=== PATIENT | female | born 1945 | race Caucasian/White ===

== ENCOUNTER → 2025-02-25 | Outpatient (CLI) | payer MEDICARE, OTHER | LOC: LAB SHORT 19:25 → LAB 19:25 | DX: R82.998 Other abnormal findings in urine (principal) | CPT/HCPCS: 87086 ==

== ENCOUNTER → 2025-02-25 | Outpatient (CLI) | payer MEDICARE, OTHER ==
[2025-02-25 16:45] LABS: BASOPHILS ABSOLUTE AUTO 0.05 K/mm3 (0.00-0.23); BASOPHILS PERCENT AUTO 1 % (0-2); EOSINOPHILS ABSOLUTE AUTO 0.13 K/mm3 (0.00-0.68); EOSINOPHILS PERCENT AUTO 3 % (0-6); Hematocrit 34.5 % (33.0-51.0); Hemoglobin 11.6 g/dL (11.5-16.0); IMMATURE GRAN ABSOLUTE AUTO 0.01 K/mm3 (0.00-0.10); IMMATURE GRAN PERCENT AUTO 0 % (0-1); LYMPHOCYTES ABSOLUTE AUTO 2.06 K/mm3 (0.84-5.20); LYMPHOCYTES PERCENT AUTO 49 % (21-46); MONOCYTES ABSOLUTE AUTO 0.31 K/mm3 (0.16-1.47); MONOCYTES PERCENT AUTO 7 % (4-13); Mean Corpuscular HGB Conc 33.6 g/dL (31.5-36.5); Mean Corpuscular Volume 97 fL (80-100); NEUTROPHILS ABSOLUTE AUTO 1.63 K/mm3 (1.96-9.15); NEUTROPHILS PERCENT AUTO 39 % (41-73); NRBC ABSOLUTE 0.00 K/mm3 (0.00-0.02); NRBC Auto 0.0 /100 WBC (0.0-0.2); Platelet Count 240 K/mm3 (150-400); RDW Coefficient Variation 17.2 % (11.7-14.2); RDW Standard Deviation 62.1 fL (35.1-46.3)
[2025-02-25 16:57] LABS: Alanine Aminotransfer (ALT/SGP 73.0 U/L (12-78); Albumin, Blood 3.9 g/dL (3.4-5.0); Albumin/Globulin Ratio 0.9 (0.8-1.8); Anion Gap 10.0 mmol/L (3-11); Aspartate Aminotrans (AST/SGOT 38.0 U/L (12-37); Bilirubin, Total 0.5 mg/dL (0.1-1.0); Blood Urea Nitrogen 39.0 mg/dL (8-24); CO2, Blood 32.0 mmol/L (21-32); Calcium, Blood 10.0 mg/dL (8.5-10.1); Chloride, Blood 104.0 mmol/L (98-108); Creatinine, Blood 2.25 mg/dL (0.40-1.00); Globulin, Blood 4.3 g/dL (2.2-4.0); Glucose, Blood 102.0 mg/dL (70-99); Potassium, Blood 4.2 mmol/L (3.5-5.5); Sodium, Blood 142.0 mmol/L (136-145); Total Protein, Blood 8.2 g/dL (6.4-8.2)
== END | disposition home or self-care (01) ==
LOC: LAB 16:42 → LAB SHORT 16:42
DX: R55 Syncope and collapse (principal)
CPT/HCPCS: 80053; 85025

== ENCOUNTER 2025-04-15 06:50 | Inpatient (IN) | payer MEDICARE ==
[~2025-04-15] VITALS: Ht 165.1 cm; Wt 89.1 kg
[2025-04-15] MEDS ORDERED: NS 500 ML IV SCH (07:40)
[2025-04-15 08:57] LABS: Hematocrit 27.8 % (33.0-51.0); Hemoglobin 9.6 g/dL (11.5-16.0); Mean Corpuscular HGB Conc 34.5 g/dL (31.5-36.5); Mean Corpuscular Volume 104 fL (80-100); NRBC ABSOLUTE 0.00 K/mm3 (0.00-0.02); NRBC Auto 0.0 /100 WBC (0.0-0.2); Platelet Count 205 K/mm3 (150-400); RDW Coefficient Variation 14.9 % (11.7-14.2); RDW Standard Deviation 57.2 fL (35.1-46.3)
[2025-04-15 09:20] LABS: Alanine Aminotransfer (ALT/SGP 67.0 U/L (12-78); Albumin, Blood 3.7 g/dL (3.4-5.0); Albumin/Globulin Ratio 1.0 (0.8-1.8); Anion Gap 10.0 mmol/L (3-11); Aspartate Aminotrans (AST/SGOT 72.0 U/L (12-37); Bilirubin, Total 0.5 mg/dL (0.1-1.0); Blood Urea Nitrogen 63.0 mg/dL (8-24); CO2, Blood 26.0 mmol/L (21-32); Calcium, Blood 9.6 mg/dL (8.5-10.1); Chloride, Blood 102.0 mmol/L (98-108); Creatinine, Blood 4.89 mg/dL (0.40-1.00); Globulin, Blood 3.8 g/dL (2.2-4.0); Glucose, Blood 122.0 mg/dL (70-99); Magnesium, Blood 3.0 mg/dL (1.6-2.4); Potassium, Blood 4.2 mmol/L (3.5-5.5); Sodium, Blood 134.0 mmol/L (136-145); Total Protein, Blood 7.5 g/dL (6.4-8.2)
[2025-04-15 09:31] LABS: BAND PERCENT MAN 1 % (0-8); BASOPHILS ABSOLUTE MAN 0.10 K/mm3 (0.00-0.23); BASOPHILS PERCENT MAN 3 % (0-2); EOSINOPHILS ABSOLUTE MAN 0.00 K/mm3 (0.00-0.68); EOSINOPHILS PERCENT MAN 0 % (0-6); LYMPHOCYTES ABSOLUTE MAN 1.50 K/mm3 (0.84-5.20); LYMPHOCYTES PERCENT MAN 45 % (21-46); MONOCYTES ABSOLUTE MAN 0.10 K/mm3 (0.16-1.47); MONOCYTES PERCENT MAN 3 % (4-13); NEUTROPHILS ABSOLUTE MAN 1.64 K/mm3 (1.96-9.15); SEG NEUTROPHILS PERCENT MAN 48 % (41-73)
[2025-04-15] MEDS ORDERED: NS 1,000 ML IV SCH (10:05)
[2025-04-15] MEDS ORDERED: FLU VACC TS2025(65UP)/MF59C/PF 45 MCG/0.5 ML SYRINGE IM SCH (10:10)
[2025-04-15 13:21] LABS: Source, Urine Straight Cath
[2025-04-15 13:34] LABS: Bilirubin, Urine Neg (Neg); Color, Urine Yellow (P-Yellow); Glucose Qualitative, Urine Neg (Neg); Ketones, Urine Neg (Neg); Leukocyte Esterase, Urine Neg (Neg); Protein, Urine Neg (Neg); Specific Gravity, Urine 1.020 (1.003-1.022); Urobilinogen, Urine NORM (Normal)
[2025-04-15 13:50] LABS: U Amphetamine Screen Not Detected; U Barbituate Screen Not Detected; U Benzodiazapine Screen Not Detected; U Buprenorphine Screen Not Detected; U Cannabinoids Screen Not Detected; U Cocaine Screen Not Detected; U Methadone Screen Not Detected; U Methamphetamine Screen Not Detected; U Opiates Screen Not Detected; U Oxycodone Screen DETECTED; U Phencyclidine Screen Not Detected
[2025-04-15] MEDS ORDERED: Lisinopril-Hct1 EAC4 PO (14:27)
[2025-04-15] MEDS ORDERED: METO50ER PO (14:27)
[2025-04-15] MEDS ORDERED: OMEP20ER PO (14:28)
[2025-04-15] MEDS ORDERED: POTA10T PO (14:28)
[2025-04-15] MEDS ORDERED: DULO60 PO (14:28)
[2025-04-15] MEDS ORDERED: ASPI81CH PO (14:28)
[2025-04-15] MEDS ORDERED: TORS10 PO (14:28)
[2025-04-15] MEDS ORDERED: Cyclobenzaprine5 MG PO (14:29)
[2025-04-15] MEDS ORDERED: OXYC5 PO (14:29)
[2025-04-15] MEDS ORDERED: VERZENIO150 MG PO ×2 (14:29→14:30)
[2025-04-15] MEDS ORDERED: ANASTROZOLE1 M7 PO (14:30)
[2025-04-15 14:53] VITALS: BP 121/54
[2025-04-15 17:36] LABS: Influenza A, PCR NEGATIVE (NEGATIVE); Influenza B, PCR NEGATIVE (NEGATIVE); Resp Syncytial Virus, PCR NEGATIVE (NEGATIVE); SARS-Cov-2 (COVID-19) PCR, MMC NEGATIVE (NEGATIVE)
--- NOTE | 2025-04-15 18:32 | NUR ---
SHIFT SUMMARY NEW ER ADMIT THIS SHIFT, A&OX4, PLEASANT AND COOPERATIVE W/CARES, SBA (NO DEVICES) TO BR, CONT X2, USING CALL LIGHT APPROPIATELY, DR ARITA IN TO SEE PT BEFORE DINNER, FAMILY AT BEDSIDE AT THIS TIME, CALL LIGHT IN REACH, WILL CONT TO MONITOR UNTIL REPORT GIVEN TO ONCOMING NURSE.
[2025-04-15] MEDS ORDERED: Heparin Sodium,Porcine 5,000 UNIT/0.5 ML SDV SC SCH (21:00)
[2025-04-15 21:37] VITALS: BP 100/51
[2025-04-15] MEDS ORDERED: Dextran/Hypromellose/Glycerin 15 DROP/ML BTL BOTHEYES PRN (22:25)
[2025-04-15] MEDS ORDERED: Atarax10 MG (22:31)
[2025-04-16 04:22] VITALS: BP 110/49
[2025-04-16 06:02] LABS: Alanine Aminotransfer (ALT/SGP 48.0 U/L (12-78); Albumin, Blood 2.8 g/dL (3.4-5.0); Albumin/Globulin Ratio 0.9 (0.8-1.8); Anion Gap 8.0 mmol/L (3-11); Aspartate Aminotrans (AST/SGOT 31.0 U/L (12-37); Bilirubin, Direct 0.1 mg/dL (0.0-0.3); Bilirubin, Indirect 0.3 mg/dL (0.1-0.7); Bilirubin, Total 0.4 mg/dL (0.1-1.0); Blood Urea Nitrogen 53.0 mg/dL (8-24); CO2, Blood 24.0 mmol/L (21-32); Calcium, Blood 8.6 mg/dL (8.5-10.1); Chloride, Blood 108.0 mmol/L (98-108); Creatinine, Blood 3.12 mg/dL (0.40-1.00); Globulin, Blood 3.2 g/dL (2.2-4.0); Glucose, Blood 138.0 mg/dL (70-99); Phosphorus, Blood 3.5 mg/dL (2.5-4.9); Potassium, Blood 4.3 mmol/L (3.5-5.5); Sodium, Blood 136.0 mmol/L (136-145); Total Protein, Blood 6.0 g/dL (6.4-8.2)
[2025-04-16 07:32] VITALS: BP 114/55
--- NOTE | 2025-04-16 07:42 | NUR ---
END OF SHIFT SUMMARY: PT VISITING FAMILY AT START OF SHIFT. PT DAUGHTER TO BRING IN PT ORAL CHEMO SHE HAS BEEN TAKING PRIOR TO ADMISSION. DISCUSED W FAMILY AND PT THAT SHE IS TO NOT TAKE ANY HOME MEDICATIONS TILL RENAL AND ONCOLOGIST AND PRIMARY HERE DETERMINE PLAN OF CARE AND IMPROVEMENT IN KIDNEY FUNCTION. OVERNIGHT, IVF RUNNING AT 100 AND AM RENAL AND LIVER PANEL LABS DRAWN. PT USED WALKER TO WALK TO RR AND HAD BM AND SEVERAL VOIDS OVERNIGHT. IN AM HOURS, PT AWOKE W NONPRODUCTIVE COUGH. PT REPORTS HAVING THIS FOR SOME TIME AND DOES NOT USE O2 AT HOME. ER DID RESPITORY PANEL AND RESULTS WERE NEGATIVE FOR INFECTION AT THIS TIME. MED REC COMPLETED AND AWAITING TEAM TO DETERMINE RESUMPTION OF HOME MEDICATIONS. PT ALERT AND ORIENTED ALL SHIFT W NO JERKING OR COMPLAINTS OF HEADACHE DAUGHTER HAD STATED SEEING BRINGING PT TO HOSPITAL
[2025-04-16] MEDS ORDERED: NS 1,000 ML IV SCH (14:10)
[2025-04-16 15:24] VITALS: BP 155/68
--- NOTE | 2025-04-16 18:10 | NUR ---
SHIFT SUMMARY: A&OX4 THROUGHOUT SHIFT. PLEASANT AND COOPERATIVE WITH CARE. NO ACUTE EVENTS THIS SHIFT. O2 SATS >90% ON ROOM AIR. DENIES FEELING SHORT OF BREATH. DENIES CHEST PAIN AND/OR DISCOMFORT. FLUIDS RUNNING PER EMAR. UP OUT OF BED MULTIPLE TIMES WITH STAFF ASSIST. LYING IN BED AT THIS TIME. BED LOCKED AND IN THE LOWEST POSITION. CALL LT WITHIN REACH.
[2025-04-16 20:12] VITALS: BP 127/77
[2025-04-16] MEDS ORDERED: ABEMACICLIB 150 MG PO SCH (21:00)
[2025-04-17 03:54] VITALS: BP 132/52
[2025-04-17 06:36] LABS: BASOPHILS ABSOLUTE AUTO 0.03 K/mm3 (0.00-0.23); BASOPHILS PERCENT AUTO 1 % (0-2); EOSINOPHILS ABSOLUTE AUTO 0.10 K/mm3 (0.00-0.68); EOSINOPHILS PERCENT AUTO 3 % (0-6); Hematocrit 23.6 % (33.0-51.0); Hemoglobin 7.7 g/dL (11.5-16.0); IMMATURE GRAN ABSOLUTE AUTO 0.01 K/mm3 (0.00-0.10); IMMATURE GRAN PERCENT AUTO 0 % (0-1); LYMPHOCYTES ABSOLUTE AUTO 1.63 K/mm3 (0.84-5.20); LYMPHOCYTES PERCENT AUTO 53 % (21-46); MONOCYTES ABSOLUTE AUTO 0.21 K/mm3 (0.16-1.47); MONOCYTES PERCENT AUTO 7 % (4-13); Mean Corpuscular HGB Conc 32.6 g/dL (31.5-36.5); NEUTROPHILS ABSOLUTE AUTO 1.07 K/mm3 (1.96-9.15); NEUTROPHILS PERCENT AUTO 35 % (41-73); NRBC ABSOLUTE 0.00 K/mm3 (0.00-0.02); NRBC Auto 0.0 /100 WBC (0.0-0.2); Platelet Count 170 K/mm3 (150-400); RDW Coefficient Variation 15.4 % (11.7-14.2); RDW Standard Deviation 61.8 fL (35.1-46.3)
--- NOTE | 2025-04-17 06:37 | NUR ---
no acute changes, very [place], family had visited and then went home, patient reports sleeping well through the night, no complaints or concerns, call light with in reach, will relay to am rn
[2025-04-17 06:44] LABS: Mean Corpuscular Volume 109 fL (80-100)
[2025-04-17 07:36] LABS: Albumin, Blood 2.7 g/dL (3.4-5.0); Anion Gap 7 mmol/L (3-11); Blood Urea Nitrogen 34 mg/dL (8-24); CO2, Blood 25 mmol/L (21-32); Calcium, Blood 8.7 mg/dL (8.5-10.1); Chloride, Blood 112 mmol/L (98-108); Creatinine, Blood 1.75 mg/dL (0.40-1.00); Glucose, Blood 113 mg/dL (70-99); Phosphorus, Blood 2.7 mg/dL (2.5-4.9); Potassium, Blood 4.4 mmol/L (3.5-5.5); Sodium, Blood 140 mmol/L (136-145)
[2025-04-17 08:12] VITALS: BP 143/73
[2025-04-17] MEDS ORDERED: DULoxetine HCL 60 MG Capsule DR PO SCH (09:00)
[2025-04-17 11:02] LABS: Ferritin, Serum 114.0 ng/mL (8-252); Total Iron Binding Capacity 204.0 ug/dL (250-450)
[2025-04-17 13:13] LABS: Hematocrit 24.9 % (33.0-51.0); Hemoglobin 8.1 g/dL (11.5-16.0)
[2025-04-17 15:29] VITALS: BP 114/101
== END 2025-04-17 17:46 | disposition home or self-care (01) | DRG 682 ==
LOC: ER 06:50 → SURS 10:03 → MEDS 10:03
PROVIDERS: Hospitalist; Student in an Organized Health Care Education/Training Program; ADMIT Family Medicine
DX: N17.9 Acute kidney failure, unspecified (principal); G92.8 Other toxic encephalopathy; E87.1 Hypo-osmolality and hyponatremia; N18.4 Chronic kidney disease, stage 4 (severe); D64.9 Anemia, unspecified; Z66 Do not resuscitate; C50.919 Malignant neoplasm of unspecified site of unspecified female breast; D72.819 Decreased white blood cell count, unspecified; K21.9 Gastro-esophageal reflux disease without esophagitis; Z90.49 Acquired absence of other specified parts of digestive tract; Z90.89 Acquired absence of other organs; Z90.710 Acquired absence of both cervix and uterus; Z88.5 Allergy status to narcotic agent; Z79.82 Long term (current) use of aspirin; Z79.899 Other long term (current) drug therapy
CPT/HCPCS: 36415; 70450; 71046; 73030; 73610; 76770; 80053; 80069; 81003; 82140; 82248; 82570; 82607; 82728; 82746; 83540; 83550; 83735; 83880; 84100; 84300; 85014; 85018; 85025; 87637; 93005; 93010; 99285-25; A9270; J1644; J7030

== ENCOUNTER → 2025-05-10 | Outpatient (CLI) | payer MEDICARE ==
[~2025-05-10] MED LIST: ANASTROZOLE1 M7 PO; ASPI81CH PO; Atarax10 MG; Cyclobenzaprine5 MG PO; DULO60 PO; Lisinopril-Hct1 EAC4 PO; METO50ER PO; OMEP20ER PO; OXYC5 PO; POTA10T PO; TORS10 PO; VERZENIO150 MG PO
[2025-05-10 18:31] LABS: BASOPHILS ABSOLUTE AUTO 0.06 K/mm3 (0.00-0.23); BASOPHILS PERCENT AUTO 2 % (0-2); EOSINOPHILS ABSOLUTE AUTO 0.14 K/mm3 (0.00-0.68); EOSINOPHILS PERCENT AUTO 3 % (0-6); Hematocrit 30.2 % (33.0-51.0); Hemoglobin 10.3 g/dL (11.5-16.0); IMMATURE GRAN ABSOLUTE AUTO 0.01 K/mm3 (0.00-0.10); IMMATURE GRAN PERCENT AUTO 0 % (0-1); LYMPHOCYTES ABSOLUTE AUTO 1.96 K/mm3 (0.84-5.20); LYMPHOCYTES PERCENT AUTO 48 % (21-46); MONOCYTES ABSOLUTE AUTO 0.28 K/mm3 (0.16-1.47); MONOCYTES PERCENT AUTO 7 % (4-13); Mean Corpuscular HGB Conc 34.1 g/dL (31.5-36.5); Mean Corpuscular Volume 109 fL (80-100); NEUTROPHILS ABSOLUTE AUTO 1.63 K/mm3 (1.96-9.15); NEUTROPHILS PERCENT AUTO 40 % (41-73); NRBC ABSOLUTE 0.00 K/mm3 (0.00-0.02); NRBC Auto 0.0 /100 WBC (0.0-0.2); Platelet Count 217 K/mm3 (150-400); RDW Coefficient Variation 13.8 % (11.7-14.2); RDW Standard Deviation 55.2 fL (35.1-46.3)
[2025-05-10 18:41] LABS: Alanine Aminotransfer (ALT/SGP 25.0 U/L (12-78); Albumin, Blood 3.7 g/dL (3.4-5.0); Albumin/Globulin Ratio 0.9 (0.8-1.8); Anion Gap 15.0 mmol/L (3-11); Aspartate Aminotrans (AST/SGOT 22.0 U/L (12-37); Bilirubin, Total 0.4 mg/dL (0.1-1.0); Blood Urea Nitrogen 22.0 mg/dL (8-24); CO2, Blood 26.0 mmol/L (21-32); Calcium, Blood 9.8 mg/dL (8.5-10.1); Chloride, Blood 105.0 mmol/L (98-108); Creatinine, Blood 1.82 mg/dL (0.40-1.00); Globulin, Blood 4.0 g/dL (2.2-4.0); Glucose, Blood 103.0 mg/dL (70-99); Potassium, Blood 4.0 mmol/L (3.5-5.5); Sodium, Blood 142.0 mmol/L (136-145); Total Protein, Blood 7.7 g/dL (6.4-8.2)
== END ==
LOC: LAB 18:26 → LAB SHORT 18:26
PROVIDERS: Physician Assistant Medical
DX: R60.0 Localized edema (principal)
CPT/HCPCS: 80053; 85025; 85379

== ENCOUNTER 2025-05-23 22:38 | Emergency (ER) | payer MEDICARE ==
[~2025-05-23] VITALS: Ht 162.6 cm; Wt 81.7 kg
[2025-05-23] MEDS ORDERED: HYDROmorphone HCl/Pf 1MG SYR IV ONE (23:30)
[2025-05-23 23:54] LABS: BASOPHILS ABSOLUTE AUTO 0.04 K/mm3 (0.00-0.23); BASOPHILS PERCENT AUTO 1 % (0-2); EOSINOPHILS ABSOLUTE AUTO 0.13 K/mm3 (0.00-0.68); EOSINOPHILS PERCENT AUTO 4 % (0-6); Hematocrit 30.4 % (33.0-51.0); Hemoglobin 10.4 g/dL (11.5-16.0); Mean Corpuscular HGB Conc 34.2 g/dL (31.5-36.5); Mean Corpuscular Volume 111 fL (80-100); NRBC ABSOLUTE 0.00 K/mm3 (0.00-0.02); NRBC Auto 0.0 /100 WBC (0.0-0.2); Platelet Count 232 K/mm3 (150-400); RDW Coefficient Variation 13.2 % (11.7-14.2); RDW Standard Deviation 52.8 fL (35.1-46.3)
[2025-05-23 23:59] LABS: IMMATURE GRAN ABSOLUTE AUTO 0.01 K/mm3 (0.00-0.10); IMMATURE GRAN PERCENT AUTO 0 % (0-1); LYMPHOCYTES ABSOLUTE AUTO 1.62 K/mm3 (0.84-5.20); LYMPHOCYTES PERCENT AUTO 47 % (21-46); MONOCYTES ABSOLUTE AUTO 0.32 K/mm3 (0.16-1.47); MONOCYTES PERCENT AUTO 9 % (4-13); NEUTROPHILS ABSOLUTE AUTO 1.32 K/mm3 (1.96-9.15); NEUTROPHILS PERCENT AUTO 38 % (41-73)
[2025-05-24 00:14] LABS: Alanine Aminotransfer (ALT/SGP 28.0 U/L (12-78); Albumin, Blood 3.8 g/dL (3.4-5.0); Albumin/Globulin Ratio 0.9 (0.8-1.8); Anion Gap 8.0 mmol/L (3-11); Aspartate Aminotrans (AST/SGOT 26.0 U/L (12-37); Bilirubin, Total 0.3 mg/dL (0.1-1.0); Blood Urea Nitrogen 34.0 mg/dL (8-24); CO2, Blood 29.0 mmol/L (21-32); Calcium, Blood 10.0 mg/dL (8.5-10.1); Chloride, Blood 103.0 mmol/L (98-108); Creatinine, Blood 2.12 mg/dL (0.40-1.00); Globulin, Blood 4.1 g/dL (2.2-4.0); Glucose, Blood 119.0 mg/dL (70-99); Potassium, Blood 4.3 mmol/L (3.5-5.5); Sodium, Blood 136.0 mmol/L (136-145); Total Protein, Blood 7.9 g/dL (6.4-8.2)
[2025-05-24 01:20] VITALS: BP 122/76
== END 2025-05-24 01:38 | disposition home or self-care (01) ==
LOC: ER 22:38
PROVIDERS: Student in an Organized Health Care Education/Training Program
DX: R60.0 Localized edema (principal); M79.605 Pain in left leg; M79.604 Pain in right leg; I10 Essential (primary) hypertension
CPT/HCPCS: 80053; 83880; 85025; 93005; 93010; 93970; 96374; 99284-25; J1171